=== PATIENT | male | born 1970 | race Caucasian/White ===

== ENCOUNTER 2020-04-17 03:50 | Emergency (ER) | payer MEDICARE, SELFPAY ==
[2020-04-17 03:51] VITALS: PULSE 71; RESP 16; TEMP 36.5; O2SAT 100; BMI 23.6
[2020-04-17 03:56] VITALS: BP 142/87
[2020-04-17] MEDS: Ondansetron ODT 4 MG Tablet 8 MG PO (04:17)
[2020-04-17] MEDS: Orphenadrine 60 MG/2 ML Ampul IM (04:18)
[2020-04-17] MEDS: Ketorolac 30 MG/ML Syringe IM (04:21)
--- NOTE | 2020-04-17 04:52 | ED.DCSUM_ITS ---
- ER Visit Summary Date of Service: 04/17/20 Chief Complaint: Back pain History of Present Illness: The patient is a 50 M who presents with back pain. He states is been ongoing for 2 hours. The pain is in the bilateral lumbar region and radiates forward. He was in bed when he twisted and that is when the pain started. Movement and remaining still make it worse. He denies any dysuria. No hematuria. No urinary or fecal incontinence. He took 2 Aleve at home without relief. He denies any history of back surgeries. He has been walking around the room and moving freely without any pain. Physical Examination: Vital signs reviewed. HEENT exam unremarkable. Heart is regular rate and rhythm without murmurs. Lungs are clear to auscultation. Abdomen is soft and nontender. Extremities reveal no edema. Skin exam normal. Neurologic exam normal. Test Results: None performed Emergency Department Course and Treatment: Patient was given Norflex Toradol and Zofran due to some nausea, likely due to the pain. His exam is fairly unremarkable. He has no pain on palpation of his abdomen or his back. I feel he can be treated with naproxen and Flexeril at home. He will follow-up with his PCP. Treatment Plan: [] Disposition: Discharge Impression: Lumbar strain This note was generated with [employer] dictation software. It may contain incorrect words, spelling, and punctuation that were not noted in review of the chart prior to signing ED Disposition - Plan for ED Patient: Disposition: Home or Assisted Living Instructions: ED LUMBAR SPRAIN/STRAIN Prescriptions: cycloBENZAPRine HCl [Flexeril] 10 mg PO TID PRN #20 tab PRN Reason: Muscle Spasm Prescription Printed Referrals: Care Physician,No Primary [Primary Care Provider] -
[2020-04-17 05:12] VITALS: RESP 16
== END 2020-04-17 05:23 | disposition home or self-care (01) ==
PROVIDERS: Emergency Provider Emergency Medicine
DX: S39.012A Strain of muscle, fascia and tendon of lower back, initial encounter (principal); X50.1XXA Overexertion from prolonged static or awkward postures, initial encounter; Y93.9 Activity, unspecified; Y92.9 Unspecified place or not applicable; Y99.9 Unspecified external cause status
CPT/HCPCS: 96372; 99282

== ENCOUNTER 2023-09-30 06:02 | Emergency (ER) | payer OTHER, MEDICARE, SELFPAY ==
[2023-09-30 06:02] VITALS: BP 117/76; PULSE 62; RESP 18; TEMP 36.2; O2SAT 96; BMI 27.3
[2023-09-30] MEDS: Diphth,Pertuss(Acell),Tet Vac 0.5 ML Vial IM (06:47)
--- NOTE | 2023-09-30 07:03 | EDS_ITS ---
HPI History of Present Illness Chief Complaint: Laceration Informant: patient Narrative Narrative: Patient is a 53-year-old male with no reported significant past medical history. He states that he was at work this morning when he was trying to undo his strap to attach to coiling springs together and as he went to do so he cut his right index finger on a sharp piece of metal. He is unsure of his tetanus status and states that he is unsure if he may need sutures and therefore comes to the hospital for evaluation. Patient reports he is [facility]idextrous [facility] Medical History no medical history Home Medications aspirin 81 mg chewable tablet (Brittney Chewable Low Dose Aspirin) 1 tab PO DAILY 09/30/23 [History Last Taken Unknown] olanzapine 10 mg tablet (Zyprexa) 10 mg PO QHS 09/30/23 [History Last Taken Unknown] Allergy/AdvReac Type Severity Reaction Status Date / Time No Known Allergies Allergy Verified 09/30/23 06:09 Social History Smoking Status: Former smoker ROS ROS ED Constitutional Constitutional ED: Denies chills or fever(s) ENT ENT ED: Denies sore throat Cardiovascular Cardiovascular: Denies chest pain Respiratory/Chest Respiratory/Chest: Denies cough or dyspnea Gastrointestinal Gastrointestinal: Denies abdominal pain, diarrhea, nausea or vomiting Genitourinary Genitourinary ED: Denies dysuria Musculoskeletal Musculoskeletal: Denies myalgias Integumentary Reports other Details: Positive right index finger laceration ; Denies rash Neurologic Neurologic: Denies headache(s), paresthesias or weakness Hematologic/Lymphatic Hematologic/Lymphatic: Denies easy bleeding or easy bruising EXAM Physical Exam Const Vital Signs: 09/30/23 06:02 09/30/23 07:11 Temperature 97.2 F L 97.4 F L Temperature Source Temporal Pulse Rate 62 65 Respiratory Rate 18 18 Blood Pressure 117/76 115/60 Blood Pressure Mean 89 78 Pulse Ox 96 96 Oxygen Delivery Method Room Air Positive well nourished and well developed General Appearance ED: well developed HEENT HEENT Narrative: Normocephalic atraumatic Eyes PERRL and EOMs intact bilaterally Neck supple Resp normal respiratory effort and clear to auscultation bilaterally Cardio regular rate and regular rhythm Extremity Extremity Narrative: Right upper extremity is neurovascularly intact; AIN/PIN are intact and normal Patient has a dermal layer deep 1 cm laceration to the volar aspect of the right index finger pad without active bleeding or retained foreign body. No involvement of the nailbed. No ligamentous or tendon injury noted. Neuro oriented x3, CN's II-XII intact bilaterally and no sensory deficits noted Sensorium / Orientation: alert Motor Exam: strength 5/5 throughout Psych mental status grossly normal Skin Skin Narrative: Laceration to the right index finger as documented above MDM MDM MDM Narrative Medical decision making narrative: Patient presented to the ER with a simple laceration to the right index finger. He does not have involvement of the nailbed to suggest a nailbed laceration there is no findings of foreign body on exam and there are no secondary changes to suggest infection. Patient also has full range of motion going against a flexor tendon injury. Therefore at this time I do not feel the need for imaging or laboratory studies. Patient has tetanus status updated and the wound was cl osed with Dermabond as documented below and otherwise he is safe for discharge Patient had the right index finger cleaned with chlorhexidine. Manual pressure was applied to bring the wound edges together good approximation. Dermabond was placed over top the wound and held the edges together well. Patient tolerated procedure well without complication History & Record Review Discussion w/independent historian: Patient Discharge Plan Triage Chief Complaint: Laceration ED Provider: Mic Chase Dx/Rx/DC Orders Clinical Impression: Laceration of right index finger Instructions: ED Laceration, Extremity: Skin Glue Prescriptions: No Action olanzapine [Zyprexa] 10 mg tablet 10 mg PO QHS aspirin [Brittney Chewable Aspirin] 81 mg tablet,chewable 1 tab PO DAILY Primary Care Provider: Care Physician,No Primary Referrals: Corporate,Care [Group of Physicians] - Care Physician,No Primary [Primary Care Provider] - Disposition Disposition: Home, Self Care Discharge Date/Time: 09/30/23 07:13
[2023-09-30 07:11] VITALS: BP 115/60; PULSE 65; RESP 18; TEMP 36.3; O2SAT 96
== END 2023-09-30 07:13 | disposition home or self-care (01) ==
PROVIDERS: Emergency Provider Emergency Medicine; Visit Provider Emergency Medicine
DX: S61.210A Laceration without foreign body of right index finger without damage to nail, initial encounter (principal); Z87.891 Personal history of nicotine dependence; Y99.0 Civilian activity done for income or pay; Z79.82 Long term (current) use of aspirin; W26.8XXA Contact with other sharp object(s), not elsewhere classified, initial encounter; Z23 Encounter for immunization
CPT/HCPCS: 12001; 90471; 90715; 99282